=== PATIENT | female | born 1975 | race Two or more races ===

== ENCOUNTER 2022-06-30 05:45 | Day surgery (SDC) | payer OTHER ==
[2022-06-30] MEDS ORDERED: PEPCID20 MG PO (08:09)
== END 2022-06-30 09:30 | disposition home or self-care (01) ==
LOC: AMB-ENDOS 05:45 → CIR.AMB 15:00
PROVIDERS: ATTEND Surgery
DX: K31.7 Polyp of stomach and duodenum (principal); K44.9 Diaphragmatic hernia without obstruction or gangrene; Z20.822 Contact with and (suspected) exposure to COVID-19; E11.9 Type 2 diabetes mellitus without complications; N20.0 Calculus of kidney; K21.9 Gastro-esophageal reflux disease without esophagitis; E66.01 Morbid (severe) obesity due to excess calories